=== PATIENT | female | born 1945 | race Caucasian/White ===

== ENCOUNTER 2021-04-21 14:28 | Outpatient (CLI) | payer MEDICARE, OTHER, SELFPAY ==
[2021-04-21 14:52] VITALS: BP 152/56; PULSE 66; RESP 16; TEMP 36.7; O2SAT 98; BMI 33.8
[2021-04-21] MEDS: 0.9% Saline Lock 10 ML Syringe IV (14:58)
[2021-04-21 15:30] VITALS: BP 154/50; PULSE 59; RESP 16; TEMP 37.3; O2SAT 145
[2021-04-21 16:26] VITALS: BP 165/53; PULSE 62; RESP 16; TEMP 37.3; O2SAT 98
== END 2021-04-21 16:30 | disposition home or self-care (01) ==
LOC: ICUOUT 14:28 → MS3 14:29
PROVIDERS: PCP Family Medicine; Referring Provider Nurse Practitioner Adult Health; Visit Provider Nurse Practitioner Adult Health
DX: Z23 Encounter for immunization (principal); U07.1 COVID-19
CPT/HCPCS: J7050; M0243; A4216; Q0244

== ENCOUNTER 2022-03-10 23:50 | Emergency (ER) | payer MEDICARE, OTHER, SELFPAY ==
[2022-03-10 23:51] VITALS: BP 208/76; PULSE 72; RESP 18; TEMP 36.8; O2SAT 100; BMI 32.0
[2022-03-11 00:09] LABS: Mucous, Urine 0 SEEN /hpf (<or=2+); Squamous Epithelial Cells - UA 0 SEEN /hpf (5-10)
[2022-03-11 00:11] LABS: Color, Urine Red (Yellow); Glucose, Dipstick Normal (Normal); Ketone-Dipstick 5 mg/dl (Negative); Leukocyte Esterase-Dipstick 500 /ul (Negative); Nitrite-Dipstick Negative (Negative); Occult Blood-Urine 250 /ul (Negative); Protein-Dipstick 500 mg/dl (Negative); Specific Gravity, Urine 1.005 (1.002-1.030); Urine Bilirubin Dipstick Negative (Negative); Urine Clarity Sl. Cloudy (Clear); Urine Urobilinogen Normal (Normal)
[2022-03-11 00:28] LABS: Bacteria 3+ /hpf (None Seen); Red Blood Cells-Urine > 100 SEEN /hpf (0-5); White Blood Cells 5-10 SEEN /hpf (0-5)
[2022-03-11 00:33] VITALS: BP 167/65; PULSE 72; RESP 18; O2SAT 100
--- NOTE | 2022-03-11 00:34 | EDS_ITS ---
HPI HPI - Female History of Present Illness Chief Complaint: Complaint Informant: patient and spouse/S.O. Narrative Narrative: 76-year-old female states that prior to arrival she went to the bathroom to urinate. She noticed that the urine was red. She notes burning with urination. She denies any nausea vomiting fever or flank pain. No history of kidney stones. She is not on blood thinners. She states its been years since she had a urinary tract infection. She felt fine earlier in the day. PFSH PFSH Home Medications Quinapril Hcl [Accupril] 40 mg PO DAILY 04/03/14 [History Last Taken 08/19/15 08:00] amlodipine 10 mg tablet 10 mg PO DAILY 04/03/14 [History Last Taken 08/19/15 08:00] hydrochlorothiazide 12.5 mg capsule 25 mg PO DAILY 04/03/14 [History Last Taken Unknown] levothyroxine 125 mcg tablet 125 mcg PO DAILY 04/03/14 [History Last Taken 08/19/15 07:30] metformin 500 mg tablet 500 mg PO BIDCM 04/03/14 [History Last Taken Unknown] rosuvastatin 10 mg tablet 10 mg PO DAILY 01/24/17 [History Last Taken Unknown] phenazopyridine 200 mg tablet (Pyridium) 200 mg PO TID #9 tabs 03/11/22 [Rx Last Taken Unknown] sulfamethoxazole 800 mg-trimethoprim 160 mg tablet 1 tab PO BID #10 TABLETS 03/11/22 [Rx Last Taken Unknown] Allergy/AdvReac Type Severity Reaction Status Date / Time No Known Allergies Allergy Verified 03/10/22 23:54 Social History (Updated 03/11/22 @ 00:[address] Karson Erickson, ) Smoking Status: Never smoker substance use type: does not use ROS ROS ED Constitutional Constitutional ED: Denies chills or weight loss Eyes Eyes: Denies change in vision or diplopia ENT ENT ED: Denies ear pain, rhinorrhea or sore throat Cardiovascular Cardiovascular: Denies chest pain, orthopnea, palpitations or racing heartbeat Respiratory/Chest Respiratory/Chest: Denies cough, dyspnea or orthopnea Gastrointestinal Gastrointestinal: Denies abdominal pain, diarrhea, nausea or vomiting Genitourinary Genitourinary ED: Reports dysuria, hematuria and urinary frequency Musculoskeletal Musculoskeletal: Denies arthralgias or myalgias Integumentary Denies abscess or rash Neurologic Neurologic: Denies headache(s) or weakness Psychiatric Psychiatric: Denies anxiety, depression, suicidal ideation or suicidal thoughts Endocrine Endocrinology: Denies polydipsia, polyphagia or polyuria Allergic/Immunologic Allergic/Immunologic ED: Denies mouth swelling, tongue swelling or urticaria EXAM Physical Exam Const Vital Signs: 03/10/22 23:51 Temperature 98.2 F Temperature Source Temporal Pulse Rate 72 Respiratory Rate 18 Blood Pressure 208/76 H Blood Pressure Mean 120 Pulse Ox 100 Oxygen Delivery Method Room Air Positive well nourished and well developed General Appearance ED: well developed HEENT Reports normocephalic, head/scalp atraumatic and moist mucous membranes Eyes PERRL and EOMs intact bilaterally Neck no lymphadenopathy, supple and no JVD Resp normal respiratory effort and clear to auscultation bilaterally Cardio regular rate, regular rhythm and no murmurs GI normal to inspection, nondistended, normoactive bowel sounds and non-tender Palpation: soft Back/Spine no CVA tenderness and normal ROM Extremity normal to inspection General Extremety ED: Negative for edema General Extremity: Negative for edema Neuro oriented x3 and CN's II-XII intact bilaterally Sensorium / Orientation: alert Motor Exam: strength 5/5 throughout Psych mental status grossly normal Mood & Affect: Negative for depressed or tearful Skin no rashes or lesions noted and no wounds MDM MDM MDM Narrative Medical decision making narrative: Urinalysis demonstrates greater than 100 red blood cells 3+ bacteria 5-10 white cells positive leukocyte esterace negative nitrates. Patient received a dose of Bactrim and Pyridium. Culture was sent. Patient to be discharged home on medications. Lab Data Attestation: I reviewed the patient's lab results. Labs: Laboratory Results - last 24 hr 03/11/22 00:00 Urine Color Red Urine Clarity Sl. Cloudy Urine pH 7.0 Ur Specific [place] 1.005 Urine Protein 500 H Urine Glucose (UA) Normal Urine Ketones 5 H Urine Occult Blood 250 H Urine Nitrite Negative Urine Bilirubin Negative Urine Urobilinogen Normal Ur Leukocyte Esterase 500 H Urine RBC > 100 SEEN Urine WBC 5-10 SEEN Ur Squamous Epith Cells 0 SEEN Urine Bacteria 3+ Urine Mucus 0 SEEN Discharge Plan Triage Chief Complaint: Complaint ED Provider: Karson Erickson Dx/Rx/DC Orders Clinical Impression: Acute hemorrhagic cystitis, Dysuria Instructions: ED Cystitis Female Adult Prescriptions: New phenazopyridine [Pyridium] 200 mg tablet 200 mg PO TID Qty: 9 0RF sulfamethoxazole-trimethoprim [sulfamethoxazole-trimethoprim] 800-160 mg tablet 1 tab PO BID Qty: 10 0RF No Action metformin 500 MG tablet 500 mg PO BIDCM Label Comments: controls blood sugar amlodipine 10 MG tablet 10 mg PO DAILY Label Comments: blood pressure levothyroxine 125 MCG tablet 125 mcg PO DAILY Label Comments: thyroid hydrochlorothiazide 12.5 MG capsule 25 mg PO DAILY Label Comments: blood pressure Quinapril Hcl [Accupril] 40 MG tablet 40 mg PO DAILY Label Comments: blood pressure rosuvastatin 10 MG tablet 10 mg PO DAILY Primary Care Provider: Mark Torres Referrals: Mark Torres MD [Primary Care Provider] - 3-5 Days if not improving Disposition Disposition: Home, Self Care
[2022-03-11] MEDS: Smz/Tmp Ds Tablet 1 TABLET PO (00:42)
[2022-03-11] MEDS: Phenazopyridine 95 MG Tablet 190 MG PO (00:42)
== END 2022-03-11 00:47 | disposition home or self-care (01) ==
PROVIDERS: Emergency Provider Emergency Medicine; PCP Family Medicine; Visit Provider Emergency Medicine
DX: N30.01 Acute cystitis with hematuria (principal); R30.0 Dysuria
CPT/HCPCS: 81001; 87086; 87088; 87186; 99284

== ENCOUNTER 2022-12-16 13:55 | Emergency (ER) | payer MEDICARE, OTHER, SELFPAY ==
[2022-12-16 13:56] VITALS: BP 130/60; PULSE 60; RESP 16; TEMP 36.6; O2SAT 98; BMI 35.3
--- NOTE | 2022-12-16 14:55 | ED.VIS.LOWEX ---
HPI History of Present Illness HPI Narrative: Patient presents with laceration to her left lower leg that occurred today. Patient states she was putting mulch into a gwendolyn wheelbarrow and it accidentally hit her on her left lower leg. Patient is unsure of her last tetanus. Patient describes her pain as throbbing. Patient states nothing makes it better nothing makes it worse. Patient denies any paresthesias or weakness. Patient states the bleeding stopped after several minutes of pressure. Chief Complaint: Laceration Informant: patient Occured/Mechanism Mechanism/Context: Yes direct blow Onset/Context/Timing Onset: Today Context: Sudden Onset Timing: Continuous Quality of Pain: Throbbing Location: Left lower leg Worsened by: Nothing Relieved by: Nothing Associated Symptoms Associated Symptoms: Negative for Parasthesia, Weakness or Loss of Funtion Narrative Tetanus Immunization: Unknown [facility] Medical History (Updated 12/16/22 @ 15:[address] Sam Georges, DO) Diabetes Hypercholesterolemia Hypertension Medical History no medical history Home Medications Quinapril Hcl [Accupril] 40 mg PO DAILY 04/03/14 [History Last Taken 08/19/15 08:00] amlodipine 10 mg tablet 10 mg PO DAILY 04/03/14 [History Last Taken 08/19/15 08:00] hydrochlorothiazide 12.5 mg capsule 25 mg PO DAILY 04/03/14 [History Last Taken Unknown] levothyroxine 125 mcg tablet 125 mcg PO DAILY 04/03/14 [History Last Taken 08/19/15 07:30] metformin 500 mg tablet 500 mg PO BIDCM 04/03/14 [History Last Taken Unknown] rosuvastatin 10 mg tablet 10 mg PO DAILY 01/24/17 [History Last Taken Unknown] phenazopyridine 200 mg tablet (Pyridium) 200 mg PO TID #9 tabs 03/11/22 [Rx Last Taken Unknown] sulfamethoxazole 800 mg-trimethoprim 160 mg tablet 1 tab PO BID #10 TABLETS 03/11/22 [Rx Last Taken Unknown] cephalexin 500 mg capsule 500 mg PO Q6 #40 CAPSULES 12/16/22 [Rx Last Taken Unknown] Allergy/AdvReac Type Severity Reaction Status Date / Time No Known Allergies Allergy Verified 12/16/22 13:57 Surgical History (Updated 12/16/22 @ 15:[address] 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 Social History Smoking Status: Never smoker substance use type: does not use ROS ROS ED Constitutional Constitutional ED: Denies chills or fever(s) Eyes Eyes: Denies blurry vision or change in vision ENT ENT ED: Reports rhinorrhea; Denies sore throat Cardiovascular Cardiovascular: Reports chest pain; Denies palpitations Respiratory/Chest Respiratory/Chest: Reports cough and dyspnea Gastrointestinal Gastrointestinal: Denies nausea or vomiting Genitourinary Genitourinary ED: Denies dysuria or hematuria Musculoskeletal Musculoskeletal: Denies back pain or neck pain Integumentary Denies abscess or rash Neurologic Neurologic: Reports headache(s); Denies weakness Allergic/Immunologic Allergic/Immunologic ED: Denies mouth swelling or urticaria EXAM Physical Exam Const Vital Signs: 12/16/22 13:56 Temperature 97.8 F Temperature Source Temporal Pulse Rate 60 Respiratory Rate 16 Blood Pressure 130/60 H Blood Pressure Mean 83 Pulse Ox 98 Oxygen Delivery Method Room Air Positive well nourished and well developed General Appearance ED: well developed and NAD HEENT Reports moist mucous membranes Neck full ROM and supple Extremity full ROM Neuro oriented x3, CN's II-XII intact bilaterally, moves all extremities and no sensory deficits noted Sensorium / Orientation: alert Motor Exam: strength 5/5 throughout Psych mental status grossly normal Skin Skin Narrative: There is a superficial skin tear over the anteromedial aspect of the left lower leg near the ankle. There is mild gapping of the wound margins. There is no active bleeding noted. There are no foreign bodies noted. Pedal pulses are equal bilaterally. Sensation was intact to light touch in all digits. Strength is 5/5 bilaterally in the lower extremities. There are no sensory deficits noted. There is no erythema or warmth. MDM MDM MDM Narrative Medical decision making narrative: The laceration is a superficial skin tear. I feel it is amenable to closure with Steri-Strips. Patient was given a tetanus booster here. Patient was given a dose of Keflex and a prescription for Keflex since she is diabetic and it was cut on a gwendolyn wheelbarrow. Patient understands and is agreeable with the plan. Patient was instructed to follow-up with her primary care physician in 5 to 7 days. All questions were answered. Discharge Plan Triage Chief Complaint: Laceration ED Provider: Sam Georges Dx/Rx/DC Orders Clinical Impression: Laceration of left leg, Diabetes Instructions: ED Laceration: All Closures Prescriptions: New cephalexin [cephalexin] 500 mg capsule 500 mg PO Q6 Qty: 40 0RF No Action metformin 500 MG tablet 500 mg PO BIDCM Label Comments: controls blood sugar amlodipine 10 MG tablet 10 mg PO DAILY Label Comments: blood pressure levothyroxine 125 MCG tablet 125 mcg PO DAILY Label Comments: thyroid hydrochlorothiazide 12.5 MG capsule 25 mg PO DAILY Label Comments: blood pressure Quinapril Hcl [Accupril] 40 MG tablet 40 mg PO DAILY Label Comments: blood pressure rosuvastatin 10 MG tablet 10 mg PO DAILY phenazopyridine [Pyridium] 200 mg tablet 200 mg PO TID Qty: 9 0RF sulfamethoxazole-trimethoprim [sulfamethoxazole-trimethoprim] 800-160 mg tablet 1 tab PO BID Qty: 10 0RF Primary Care Provider: Mark Torres Referrals: Mark Torres MD [Primary Care Provider] - 5-7 Days Disposition Disposition: Home, Self Care
[2022-12-16] MEDS: Diphth,Pertuss(Acell),Tet Vac 0.5 ML Vial IM (15:21)
[2022-12-16] MEDS: Cephalexin 500 MG Capsule PO (15:22)
== END 2022-12-16 15:26 | disposition home or self-care (01) ==
PROVIDERS: Emergency Provider Emergency Medicine; PCP Family Medicine; Visit Provider Emergency Medicine
DX: S81.812A Laceration without foreign body, left lower leg, initial encounter (principal); E11.9 Type 2 diabetes mellitus without complications; E78.00 Pure hypercholesterolemia, unspecified; I10 Essential (primary) hypertension; R07.9 Chest pain, unspecified; W26.8XXA Contact with other sharp object(s), not elsewhere classified, initial encounter; Z23 Encounter for immunization
CPT/HCPCS: 90471; 90715; 99283

== ENCOUNTER 2022-12-23 09:07 | Emergency (ER) | payer MEDICARE, OTHER, SELFPAY ==
[2022-12-23 09:08] VITALS: BP 198/55; PULSE 66; RESP 16; TEMP 36.8; O2SAT 99; BMI 34.7
--- NOTE | 2022-12-23 09:16 | EDS_ITS ---
HPI History of Present Illness Chief Complaint: Wound Check [facility] Medical History (Updated 12/23/22 @ 09:[address] Fili Mcgarry DO) Diabetes Hypercholesterolemia Hypertension Home Medications Quinapril Hcl [Accupril] 40 mg PO DAILY 04/03/14 [History Last Taken 08/19/15 08:00] amlodipine 10 mg tablet 10 mg PO DAILY 04/03/14 [History Last Taken 08/19/15 08:00] hydrochlorothiazide 12.5 mg capsule 25 mg PO DAILY 04/03/14 [History Last Taken Unknown] levothyroxine 125 mcg tablet 125 mcg PO DAILY 04/03/14 [History Last Taken 08/19/15 07:30] metformin 500 mg tablet 500 mg PO BIDCM 04/03/14 [History Last Taken Unknown] rosuvastatin 10 mg tablet 10 mg PO DAILY 01/24/17 [History Last Taken Unknown] phenazopyridine 200 mg tablet (Pyridium) 200 mg PO TID #9 tabs 03/11/22 [Rx Last Taken Unknown] sulfamethoxazole 800 mg-trimethoprim 160 mg tablet 1 tab PO BID #10 TABLETS 03/11/22 [Rx Last Taken Unknown] cephalexin 500 mg capsule 500 mg PO Q6 #40 CAPSULES 12/16/22 [Rx Last Taken Unknown] doxycycline hyclate 100 mg capsule 100 mg PO DAILY #14 caps 12/23/22 [Rx Last Taken Unknown] Allergy/AdvReac Type Severity Reaction Status Date / Time No Known Allergies Allergy Verified 12/23/22 09:10 Surgical History (Updated 12/16/22 @ 15:[address] 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 She states she started this 2 days ago. She has 5 additional days. She denies any crepitus or bullae. Denies any increasing pain she does note yellow discharge. Denies any fever, chills, vomiting. Does note some mild stomach upset after taking antibiotics. REVIEW OF SYSTEMS: Pertinent positives: Wound, redness Pertinent negatives: Fever, nausea vomiting, chills, hyperglycemia PHYSICAL EXAM: Nursing triage notes reviewed, Vital signs reviewed Constitutional: please see mdm Extremities: No edema, compartments are soft Neuro: Intact sensation L1-S1 dermatomal distributions. Intact 5/5 strength in hip flexion (T12-L3). Knee extension (L2-L4). Ankle dorsiflexion (L4-L5). Ankle plantar flexion (S1). Great toe extension (L5). 2+ patellar and Achilles DTRs. Skin: MEDICAL DECISION MAKING: Chief Complaint: Left leg wound External records reviewed: Seen on 12/16 for left lower leg laceration. She was initially prescribed Keflex. Factors affecting care: History of diabetes, hyperlipidemia, hypertension Social determinants of health: Elderly History obtained from others: The patient's Consults: ALL IMAGES HAVE BEEN PERSONALLY REVIEWED AND INTERPRETED BY MYSELF. [facility] Narrative: The patient was initially hypertensive otherwise hemodynamically stable, afebrile and nontoxic-appearing. Exam without evidence of compartment syndrome, necrotizing fasciitis I considered the following differential diagnosis: Cellulitis, abscess, necrotizing fasciitis Patient's exam is consistent with cellulitis. She is on day 2 of 7 of antimicrobial therapy. I gave a dose of IV vancomycin here for broad gram- positive coverage. I changed clindamycin to doxycycline based on our 2022 [facility] antibiogram that shows improved coverage for staph, MRSA, MSSA and group B strep compared to clindamycin. Total critical care time today provided was at least 0 minutes. This excludes separately billable procedures. There was a high probability of clinically significant/life threatening deterioration in the patient's condition which required my urgent intervention. Shared decision making: I will have a discussion with the patient and or visitors regarding risk/benefits of further testing or admission. They will be made aware of of the risk/benefits inherent in this decision they will be given the opportunity to voice understanding. Discharge Plan Triage Chief Complaint: Wound Check ED Provider: Fili Mcgarry Dx/Rx/DC Orders Clinical Impression: Cellulitis Instructions: Cellulitis Dc Prescriptions: New doxycycline hyclate 100 mg capsule 100 mg PO DAILY Qty: 14 0RF No Action metformin 500 MG tablet 500 mg PO BIDCM Label Comments: controls blood sugar amlodipine 10 MG tablet 10 mg PO DAILY Label Comments: blood pressure levothyroxine 125 MCG tablet 125 mcg PO DAILY Label Comments: thyroid hydrochlorothiazide 12.5 MG capsule 25 mg PO DAILY Label Comments: blood pressure Quinapril Hcl [Accupril] 40 MG tablet 40 mg PO DAILY Label Comments: blood pressure rosuvastatin 10 MG tablet 10 mg PO DAILY phenazopyridine [Pyridium] 200 mg tablet 200 mg PO TID Qty: 9 0RF sulfamethoxazole-trimethoprim [sulfamethoxazole-trimethoprim] 800-160 mg tablet 1 tab PO BID Qty: 10 0RF cephalexin [cephalexin] 500 mg capsule 500 mg PO Q6 Qty: 40 0RF Primary Care Provider: Mark Torres Referrals: Mark Torres MD [Primary Care Provider] - Activity Restrictions/Additional Instructions: Thank you for trusting us with your care today! Please take Tylenol (2 pills, 650 mg), ibuprofen (2 pills, 400 mg) every 6 hours as needed for pain and fever control. Please STOP taking Keflex, clindamycin. Please begin taking doxycycline. This is based on our local antibiotic resistance patterns. Please return to the emergency department if your symptoms change or worsen. Specifically if cannot tolerate antibiotics by mouth. If you develop worsening infection. Worsening redness. Blisters or dark discoloration of the skin. Please follow with your primary care physician for further outpatient evaluation and management. Disposition Disposition: Home, Self Care
[2022-12-23 12:04] VITALS: BP 181/99; PULSE 98; RESP 14; O2SAT 98
== END 2022-12-23 12:05 | disposition home or self-care (01) ==
PROVIDERS: Emergency Provider Emergency Medicine; PCP Family Medicine; Visit Provider Emergency Medicine
DX: L03.90 Cellulitis, unspecified (principal); E11.9 Type 2 diabetes mellitus without complications; E78.00 Pure hypercholesterolemia, unspecified; I10 Essential (primary) hypertension; Z48.00 Encounter for change or removal of nonsurgical wound dressing
CPT/HCPCS: 96365; 96366; 99283; J7050; A4216

== ENCOUNTER 2023-02-09 09:56 | Emergency (ER) | payer MEDICARE, OTHER, SELFPAY ==
[2023-02-09 09:57] VITALS: BP 173/58; PULSE 57; RESP 18; TEMP 36.6; O2SAT 100; BMI 35.3
--- NOTE | 2023-02-09 10:14 | RAD_ITS ---
INDICATION: sob EXAMINATION/TECHNIQUE: X-RAY - XR Chest 2 Views COMPARISON: FINDINGS: LINES/DEVICES: None. LUNGS: No consolidation, edema or effusion. No pneumothorax. MEDIASTINUM AND CARDIOVASCULAR STRUCTURES: Cardiac silhouette not enlarged. Central airways and mediastinal contour are unremarkable. BONES AND SOFT TISSUES: Unremarkable. RAD/Chest PA and Lateral IMPRESSION: No radiographic evidence of acute cardiopulmonary disease. Electronically Signed: Karson Hussein, at 11:00 EDT ,
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
[2023-02-09 10:23] VITALS: O2SAT 100
[2023-02-09] MEDS: Ipratropium/Albuterol Sulfate 3 ML AMPUL.NEB INHALATION (10:27)
[2023-02-09 10:29] VITALS: PULSE 58; RESP 18; O2SAT 99
== END 2023-02-09 11:52 | disposition home or self-care (01) ==
PROVIDERS: Emergency Provider Emergency Medicine; PCP Family Medicine; Visit Provider Emergency Medicine
DX: J45.901 Unspecified asthma with (acute) exacerbation (principal); E11.9 Type 2 diabetes mellitus without complications; E78.00 Pure hypercholesterolemia, unspecified; I10 Essential (primary) hypertension
CPT/HCPCS: 71046; 93005; 94640; 99282; A4216

== ENCOUNTER 2024-01-19 08:08 | Observation (INO) | payer MEDICARE, OTHER, SELFPAY ==
[2024-01-19] VITALS (11 sets, daily range): BP systolic 153–213; BP diastolic 50–139; PULSE 53–66; RESP 15–18; TEMP 36.1–36.7; O2SAT 97–99; BMI 35.4; BMI 35.0
--- NOTE | 2024-01-19 08:27 | ED.VIS.CHEST ---
HPI History of Present Illness Chief Complaint: Palpitations Informant: patient Onset/Context/Timing Onset: Today and Hours (1) Activity at onset: sudden and rest Timing: Continuous Quality: Positive for Heaviness Location: Substernal, Right Parasternal, Left Parasternal, Right Chest and Left Chest Worsened By: Nothing Relieved By: NTG Associated Symptoms: Positive for Dyspnea and Palpitations; Negative for Nausea, Vomiting, Diaphoresis, Cough, Fever, Lightheadedness or Acid Reflux Narrative Narrative: Patient presents with chest pain and palpitations that began approximately 1 hour prior to arrival. Patient states it has been intermittent. Patient describes her pain as a heaviness. Patient states it felt like her heart was racing. Patient states it is diffuse across her entire chest. Patient was given nitroglycerin by EMS. Patient states this did help with her pain. Patient states nothing makes it worse. Patient admits to some mild shortness of breath with her pain. Patient denies any nausea or vomiting. Patient denies any diaphoresis. Patient denies any lightheadedness or dizziness. CVD Risk Factors: Positive for Hypertension, Diabetes and Hypercholesterolemia; Negative for Family History 1' </=55 or Smoking PE Risk Factors: Negative for Recent Travel/Surgery, Recent Immobilization, Prior DVT or PE, Cancer or OCP + Smoking + >/=35 PFSH PFS Medical History Hypercholesterolemia Hypertension Diabetes Home Medications ?Medication ?Instructions ?Recorded ?Last Taken ?Type amlodipine 10 mg tablet 10 mg PO DAILY 04/03/14 08/19/15 08:00 History levothyroxine 125 mcg tablet 125 mcg PO DAILY 04/03/14 08/19/15 07:30 History metformin 500 mg tablet 500 mg PO BIDCM 04/03/14 Unknown History albuterol sulfate 90 mcg/actuation 2 puff inhalation Q4H PRN WHEEZING 01/19/24 01/18/24 History aerosol inhaler (Ventolin HFA) coffee extract 100 mg-phosphatidyl 2 cap PO DAILY MIND/MEMORY 01/19/24 01/18/24 History serine 100 mg capsule (Neuriva SUPPLEMENT Original) hydrochlorothiazide 25 mg tablet 25 mg PO DAILY BLOOD PRESSURE 01/19/24 01/18/24 History lisinopril 20 mg tablet 20 mg PO DAILY BLOOD PRESSURE 01/19/24 01/18/24 History pravastatin 10 mg tablet 10 mg PO QHS CHOLESEROL 01/19/24 01/18/24 History Allergy/AdvReac Type Severity Reaction Status Date / Time No Known Allergies Allergy Verified 01/19/24 08:08 Surgical History 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 Social History Smoking Status: Never smoker substance use type: does not use ROS ROS ED Constitutional Constitutional ED: Denies chills or fever(s) Eyes Eyes: Denies blurry vision or change in vision ENT ENT ED: Denies rhinorrhea or sore throat Cardiovascular Cardiovascular: Reports chest pain, palpitations and racing heartbeat Respiratory/Chest Respiratory/Chest: Reports dyspnea; Denies cough Gastrointestinal Gastrointestinal: Denies abdominal pain, nausea or vomiting Genitourinary Genitourinary ED: Denies dysuria or hematuria Musculoskeletal Musculoskeletal: Denies back pain or neck pain Integumentary Denies abscess or rash Neurologic Neurologic: Denies headache(s) or weakness Allergic/Immunologic Allergic/Immunologic ED: Denies mouth swelling or urticaria EXAM Physical Exam Const Vital Signs: 01/19/24 08:09 01/19/24 08:09 01/19/24 08:38 Temperature 96.9 F L Temperature Source Temporal Pulse Rate 66 Respiratory Rate 17 Respiratory Effort Normal Non-Labored Blood Pressure 211/61 H Blood Pressure Mean 111 Pulse Ox 98 Oxygen Delivery Method Room Air Room Air 01/19/24 08:54 Temperature Temperature Source Pulse Rate 53 L Respiratory Rate Respiratory Effort Blood Pressure 169/139 H Blood Pressure Mean Pulse Ox Oxygen Delivery Method Positive well nourished and well developed General Appearance ED: well developed and NAD HEENT Reports moist mucous membranes Neck supple and no JVD Chest Wall inspection of chest normal and palpation of chest normal Resp normal respiratory effort and clear to auscultation bilaterally Cardio regular rate and regular rhythm GI soft to palpation, non-tender and non-distended Neuro oriented x3, CN's II-XII intact bilaterally and no sensory deficits noted Sensorium / Orientation: awake and alert Motor Exam: strength 5/5 throughout Psych mental status grossly normal Heart Score History: Moderately Suspicious ECG: Nonspecific Repolarization Age: >/= 65 years Risk Factors: >/= 3 Risk Factors or History of CAD Troponin: </= Normal Limit Score: 6 MDM MDM MDM Narrative Medical decision making narrative: Differential diagnosis includes cardiac dysrhythmia, cardiac ischemia, hypertensive urgency, hypertensive emergency, pneumonia, pneumothorax, electrolyte abnormality, congestive heart failure, GERD, musculoskeletal pain, and anxiety. EKG will be obtained to assess for cardiac dysrhythmia and cardiac ischemia. Chest x-ray will be obtained to assess for pneumonia, pneumothorax, and congestive heart failure. CBC will be obtained to assess for leukocytosis and anemia. Basic metabolic profile will be obtained to assess for electrolyte abnormality and renal function. High-sensitivity troponin will be obtained to assess for cardiac ischemia. 2-hour repeat high-sensitivity troponin will be obtained to assess for ongoing cardiac ischemia. Lab Data Attestation: I reviewed the patient's lab results. Lab results narrative: CBC was reviewed and was essentially within normal limits. Basic metabolic profile was reviewed. Potassium was slightly low at 3.4. Glucose was slightly elevated at 122. The remainder is within normal limits. High-sensitivity troponin was reviewed and was normal at 4. Labs: Laboratory Results - last 24 hr 01/19/24 07:50 WBC 7.9 RBC 4.78 Hgb 14.5 Hct 43.0 MCV 90.0 MCH 30.3 MCHC 33.7 RDW Std Deviation 41.7 RDW Coeff of Silvia 12.8 Plt Count 365 MPV 10.5 Immature Gran % (Auto) 0.300 Neut % (Auto) 46.3 L Lymph % (Auto) 40.5 Duchesne % (Auto) 8.6 Eos % (Auto) 2.8 Baso % (Auto) 1.5 H Absolute Neuts (auto) 3.7 Absolute Lymphs (auto) 3.19 Nucleated RBC % 0 Sodium 138 Potassium 3.4 L Chloride 102 Carbon Dioxide 32.0 Anion Gap 4 L BUN 13 Creatinine 0.97 Estim Creat Clear Calc 49.21 Est GFR (MDRD) Af Amer 72 Est GFR (MDRD) Non-Af 59 L BUN/Creatinine Ratio 13.4 Glucose 122 H Calcium 9.8 Troponin I High Sens 4 Radiography Chest X-Ray - ED: 1 View, Read by ED Physician, Read by Radiologist and No Acute Disease Diagnostic Testing: Clinical Impression(s) from Imaging Studies Chest X-Ray 01/19/24 08:38 IMPRESSION: No acute abnormality is seen. Electronically Signed: Andre Conde MD at 9:30 EDT , EKG Initial EKG: Attestation: I personally reviewed and interpreted this EKG as follows: Interpretation: Sinus Bradycardia (58) and Non-Specific ST Changes Comments: EKG was obtained. On my independent interpretation, it showed a sinus bradycardia with a rate of 58. [place] interval, QRS interval, and QTc intervals were all normal. Strunk was normal. There are nonspecific ST-T wave changes. Prior EKG tracings: available for review Prior: Unchanged (02/09/2023) Management Discussion w/another healthcare provider: Hospitalist Treatment and Re-Evaluation :: Patient was given aspirin and nitroglycerin by EMS. Patient was given nitroglycerin paste here. Patient was given a dose of oral potassium. Patient was feeling better on reevaluation. Patient's blood pressure improved to 169/139. Patient has a HEART score of 6. Patient states she has not had a stress test for the past 4 years or so. Because of this, I recommended admission to the hospital for further chest pain evaluation. Patient is agreeable with this. Case was discussed with the hospitalist. He will admit the patient to PCU for observation. Patient and family understood and were agreeable with the plan. All questions were answered. Discharge Plan Dx/Rx/DC Orders Clinical Impression: Chest pain, Diabetes, Hypertension Disposition Disposition: Acute Care Hospital [facility]
--- NOTE | 2024-01-19 08:38 | EKG12_ITS ---
Test Reason : PALPATATIONS Blood Pressure : / mmHG Vent. Rate : 058 BPM Atrial Rate : 058 BPM P-R Int : 148 ms QRS Dur : 082 ms QT Int : 426 ms P-R-T Axes : 020 -03 092 degrees QTc Int : 418 ms Sinus bradycardia Abnormal QRS-T angle, consider primary T wave abnormality Abnormal ECG Confirmed by Guy Alvarez ([id number]), features editor SIGRID RAVI ([id number]) on 01/20/2024 11:17:27 AM Referred By: Confirmed By:Guy Alvarez
--- NOTE | 2024-01-19 08:38 | RAD_ITS ---
STUDY: X-RAY CHEST REASON FOR EXAM: Female, 78 years old. Chest pain TECHNIQUE: Single AP portable view of the chest. COMPARISON: Comparison is made with prior study dated February 09, 2023. FINDINGS: EKG electrodes are seen. The lungs are clear and expanded. There is no demonstrated pleural abnormality. Normal size heart. Normal mediastinum and stevie. Normal visualized pulmonary arteries. Normal visualized aortic arch and descending thoracic aorta. There are diffuse degenerative changes of the visualized thoracic spine. Normal visualized ribs, clavicles, and shoulders. There is no demonstrated abnormality of the visualized soft tissue structures of the upper abdomen. RAD/Chest 1 View (Portable) IMPRESSION: No acute abnormality is seen. Electronically Signed: Andre Conde MD at 9:30 EDT ,
[2024-01-19 08:52] LABS: Absolute Lymphocyte Count 3.19 X10^3/uL (0.83-4.51); Absolute Neutrophil Count 3.7 X10^3/uL (2.0-7.7); Basophil# 0.12 X10^3/uL; Basophil% 1.5 % (0-1); Eosinophil# 0.22 X10^3/uL; Eosinophils% 2.8 % (0-5); Hemoglobin 14.5 g/dL (12.0-15.0); Lymphocyte # 3.19 X10^3/ul (0.83-4.51); Lymphocyte % 40.5 % (19-41); Mean Corp Hgb Conc 33.7 g/dL (32-36); Mean Corpuscular Hgb 30.3 pg (27.0-32.0); Mean Platelet Vol. 10.5 fl (6.2-12.0); Monocyte# 0.68 X10^3/uL; Monocyte% 8.6 % (0-10); NRBC Flagged by Analyzer 0 % (0-5); Neutrophil # 3.65 X10^3/uL (2.7-7.7); Neutrophil % 46.3 % (47-70); Platelet Count 365 K/mm3 (150-450); RBC Distribution Width CV 12.8 % (11.6-14.6); RBC Distribution Width SD 41.7 fl (35.1-43.9); Red Blood Count 4.78 M/mm3 (4.2-5.4); White Blood Count 7.9 K/mm3 (4.4-11.0)
[2024-01-19] MEDS: Nitroglycerin Oint 1 INCH PACKET TD (08:54)
[2024-01-19 09:07] LABS: Anion Gap 4 (5-15); BUN 13 mg/dL (7-18); BUN/Creat Ratio 13.4 RATIO (10-20); Calcium,Total 9.8 mg/dL (8.5-10.1); Chloride 102 mmol/L (98-107); Creatinine, Serum 0.97 mg/dL (0.55-1.02); EST Glomerular Filtration Rate 59 mL/min (>60); Est Glom Filt Rate - Afr Amer 72 mL/min (>60); Estimated Creatinine Clearance 49.21 ml/min; Glucose 122 mg/dL (74-106); Potassium 3.4 mmol/L (3.5-5.1); Sodium Level 138 mmol/L (136-145); Troponin-I HS (w/2H Reflex) 4 pg/mL (3.0-54.0)
--- NOTE | 2024-01-19 09:37 | PCM.HP.STD ---
HPI - General General Date of Admission: 01/19/24 Date of Service: 01/19/24 Chief Complaint: Chest pain HPI Narrative SARAH CARRIZALES, is a 78 F who presented to [facility] ED on 01/19/2024 with chest pain. Saw patient at bedside in the ED, and daughter present. Patient was sitting up fairly comfortably in bed, conversing normally, in no acute distress during our encounter. Patient has history of high blood pressure, high cholesterol, [id number] type 2 diabetes, hypothyroidism and asthma. States she has been taking all home medications as prescribed. Patient states she had an episode of chest pain this morning that woke her up from sleep. She has had episodes of mild chest pain in the past but this was worse than anything she had previously experienced. She described the pain as a chest heaviness and like her heart was racing. Stated the pain was diffuse across her chest. Was given nitroglycerin by EMS and states this did help her pain. States nothing made the pain worse. During our encounter, she reported very mild chest tightness that was much improved from previous. Patient reports chronic shortness of breath with exertion due to her known history of asthma. She uses her albuterol inhaler usually multiple times per week and states her symptoms are sometimes worst in the summer. She had not needed to use her albuterol inhaler over the past few days however. She does have good relief of symptoms when she uses the inhaler. Patient otherwise denies any acute concerns currently. Denies any shortness of breath, abdominal pain, fevers or chills. Vitals in ED were notable for hypertension with BP around 200s/80s, was otherwise hemodynamically stable on room air. Labs notable for potassium 3.4, CBC and BMP otherwise unremarkable. Troponin negative x 2. EKG with normal sinus rhythm, no ST changes. Chest x-ray was unremarkable. [facility] Medical History Hypercholesterolemia Hypertension Diabetes Home Medications ?Medication ?Instructions ?Recorded ?Last Taken ?Type amlodipine 10 mg tablet 10 mg PO DAILY BLOOD PRESSURE 04/03/14 01/18/24 History levothyroxine 125 mcg tablet 125 mcg PO DAILY THYROID 04/03/14 01/18/24 History metformin 500 mg tablet 500 mg PO BIDCM DIABETES 04/03/14 01/18/24 History albuterol sulfate 90 mcg/actuation 2 puff inhalation Q4H PRN WHEEZING 01/19/24 01/18/24 History aerosol inhaler (Ventolin HFA) coffee extract 100 mg-phosphatidyl 2 cap PO DAILY MIND/MEMORY 01/19/24 01/18/24 History serine 100 mg capsule (Neuriva SUPPLEMENT Original) hydrochlorothiazide 25 mg tablet 25 mg PO DAILY BLOOD PRESSURE 01/19/24 01/18/24 History lisinopril 20 mg tablet 20 mg PO DAILY BLOOD PRESSURE 01/19/24 01/18/24 History pravastatin 10 mg tablet 10 mg PO QHS CHOLESEROL 01/19/24 01/18/24 History Allergy/AdvReac Type Severity Reaction Status Date / Time No Known Allergies Allergy Verified 01/19/24 08:08 Surgical History 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 Social History Smoking Status: Never smoker substance use type: does not use ROS Constitutional Constitutional: Denies chills, fatigue, fever(s) or weakness Eyes Eyes: Denies change in vision Cardiovascular Cardiovascular: Reports chest pain and rapid heart rate; Denies edema, lightheadedness, palpitations or syncope Respiratory/Chest Respiratory/Chest: Reports shortness of breath with exertion; Denies cough, shortness of breath at rest or wheezing Gastrointestinal Gastrointestinal: Denies abdominal pain Musculoskeletal Musculoskeletal: Denies back pain Neurologic Neurologic: Denies dizziness, focal weakness or headache(s) Vital Signs Vital Signs Vital Signs: 01/19/24 08:09 01/19/24 08:09 01/19/24 08:38 Temperature 96.9 F L Temperature Source Temporal Pulse Rate 66 Respiratory Rate 17 Respiratory Effort Normal Non-Labored Blood Pressure 211/61 H Blood Pressure Mean 111 Pulse Ox 98 Oxygen Delivery Method Room Air Room Air 01/19/24 08:54 Temperature Temperature Source Pulse Rate 53 L Respiratory Rate Respiratory Effort Blood Pressure 169/139 H Blood Pressure Mean Pulse Ox Oxygen Delivery Method Weight Weight: 87.9 kg Body Mass Index (BMI) 35.4 Physical Exam Const alert, oriented x3 and no apparent distress Constitutional Narrative: Elderly female, obese, mildly anxious appearing, otherwise laying comfortably in bed, conversing normally, no acute distress. General Appearance: cooperative and comfortable HEENT normocephalic, head/scalp atraumatic, hearing grossly normal bilaterally and nasal mucous membranes and turbinates normal Eyes PERRL, EOMs intact bilaterally and conjunctivae normal Neck full ROM Chest inspection of chest normal Resp normal respiratory effort, normal air movement, no use of accessory muscles and clear to auscultation bilaterally Cardio regular rate, regular rhythm, no murmurs and peripheral pulses 2+ throughout GI normal to inspection, nondistended, normoactive bowel sounds, soft to palpation, non-tender and non-distended Back/Spine normal ROM Extremity normal to inspection, full ROM and no pedal edema Skin no rashes or lesions noted Neuro moves all extremities and no focal motor deficits Speech: speech normal Psych mental status grossly normal Mood & Affect: anxious Results Lab / Micro Data 01/19/24 07:50 01/19/24 07:50 Labs: Laboratory Results - last 24 hr 01/19/24 07:50: WBC 7.9, RBC 4.78, Hgb 14.5, Hct 43.0, MCV 90.0, MCH 30.3, MCHC 33.7, RDW Std Deviation 41.7, RDW Coeff of Silvia 12.8, Plt Count 365, MPV 10.5, Immature Gran % (Auto) 0.300, Neut % (Auto) 46.3 L, Lymph % (Auto) 40.5, [place] % (Auto) 8.6, Eos % (Auto) 2.8, Baso % (Auto) 1.5 H, Absolute Neuts (auto) 3.7, Absolute Lymphs (auto) 3.19, Nucleated RBC % 0, Sodium 138, Potassium 3.4 L, Chloride 102, Carbon Dioxide 32.0, Anion Gap 4 L, BUN 13, Creatinine 0.97, Estim Creat Clear Calc 49.21, Est GFR (MDRD) Af Amer 72, Est GFR (MDRD) Non-Af 59 L, BUN/Creatinine Ratio 13.4, Glucose 122 H, Calcium 9.8, Troponin I High Sens 4 Imaging Radiology Impression Chest X-Ray 01/19/24 08:38 IMPRESSION: No acute abnormality is seen. Electronically Signed: Andre Conde MD at 9:30 EDT , Assessment & Plan Assessment/Plan (1) Chest pain: PLAN: Plan Patient is a 78-year-old female who presented [facility] ED on 01/19/2024 with chest pain. 1. Chest pain, ACS rule out ? Admit under observation status to PCU. Unclear etiology but elevated HEART score given her history and presentation. Cardiac workup in ED negative including negative troponins x 2, normal EKG, normal chest x-ray. Echo ordered. Nuclear stress test ordered. Lipid panel, A1c, TSH ordered. Okay to continue home amlodipine, lisinopril and hydrochlorothiazide for now. Continue cardiac monitoring. 2. Hypertension ? Home medications of amlodipine, lisinopril and hydrochlorothiazide. Systolic blood pressure significant elevated up to 200s on admit but patient notably with wide pulse pressure; this remained consistent on BP rechecks on day of admission. Unclear etiology. Continue home medications for now. Follow-up echo ordered above. Chronic medical conditions: ? Obesity: BMI 35 on admit. Encouraged lifestyle modifications. Complicates hospital course, care and prognosis. ? Asthma: Stable on room air, not in acute exacerbation. Continue home albuterol inhaler as needed. ? Hypothyroidism: TSH ordered. Continue home Synthroid. ? Type 2 diabetes mellitus: Home regimen of metformin 500 mg twice daily. A1c ordered. Will treat with sliding scale insulin with meals while inpatient, adjust as needed. ? Hyperlipidemia: Lipid profile ordered. Continue home pravastatin for now. DVT prophylaxis: Lovenox CODE STATUS: Full code, verified Expected disposition: Home, 1 to 2 days Total clinical time spent by myself addressing the patient's medical issues, reviewing all the data, and collaborating with patient's care team: 55 minutes. Charges/Coding Visit Charges Inpatient E&M: 06589 Init Hosp L2
[2024-01-19] MEDS: hydrALAZINE 20 MG/ML Vial 10 MG IV ×3 (10:00→20:42)
[2024-01-19] MEDS: Potassium Chloride Oral Tablet 20 MEQ 40 MEQ PO (10:00)
[2024-01-19 10:19] LABS: Cholesterol 282 mg/dL (200); High Density Lipoprotein 64 mg/dL; Phosphorus 3.2 mg/dL (2.5-4.9); Thyroid Stim Hormone (TSH) 3.68 uIU/mL (0.358-3.74); Triglycerides 199 mg/dL; Very Low Density Lipoprotein 40 mg/dL (5-40)
[2024-01-19 10:48] LABS: Reflex Troponin-HS? (from REC) Y
--- NOTE | 2024-01-19 10:54 | ECHOCS_ITS ---
Reason For Study: CHEST PAIN Procedure This was a 2D Doppler, Color Flow transthoracic echocardiogram. The study was technically difficult. Contrast injection was performed. Exam performed portable in patient room. Left Ventricle Normal size and thickness. The left ventricular ejection fraction is 65 %. Stage 1 diastolic dysfunction. Right Ventricle Normal right ventricle. Atria The left atrium is severely enlarged. The right atrium is mildly enlarged. Mitral Valve Trivial mitral valve insufficiency. Tricuspid Valve Trivial tricuspid valve insufficiency. Normal pulmonary artery pressure. Aortic Valve The aortic valve is not well visualized in the short axis view. There is no aortic stenosis. No aortic valve insufficiency. Pulmonic Valve The pulmonic valve is not well visualized. Great Vessels The aortic root is not well visualized. Pericardium/Pleural Trivial pericardial effusion. Medication Diluted definity 2ml given slow IV push to enhance endocardial definition. MMode/2D Measurements & Calculations LVIDd: 3.9 cm IVSd: 1.1 cm LVOT diam: 1.9 cm LVIDs: 2.6 cm LVPWd: 1.1 cm RVDd: 3.1 cm FS: 32.9 % LVOT area: 2.7 cm2 Ao root diam: 2.7 cm LAV(MOD-bp): 51.5 ml LVAd ap4: 29.3 cm2 LAV(MOD-bp) Indexed: 27.3 ml/m2 LVLd ap4: 7.4 cm LAV(MOD-sp2): 48.8 ml EDV(MOD-sp4): 94.9 ml LAV(MOD-sp4): 50.9 ml EDV(sp4-el): 98.6 ml LVAs ap4: 18.3 cm2 LVLs ap4: 6.5 cm ESV(MOD-sp4): 44.1 ml ESV(sp4-el): 43.6 ml EF(MOD-sp4): 53.5 % EF(sp4-el): 55.7 % LVAd ap2: 31.4 cm2 SV(MOD-sp4): 50.8 ml SV(MOD-sp2): 64.0 ml LVLd ap2: 7.6 cm EDV(MOD-sp2): 106.4 ml EDV(sp2-el): 110.3 ml LVAs ap2: 18.0 cm2 LVLs ap2: 6.3 cm ESV(MOD-sp2): 42.4 ml ESV(sp2-el): 43.8 ml EF(MOD-sp2): 60.1 % SV(sp4-el): 54.9 ml LA dimension(2D): 4.0 cm LA A4 area: 17.7 cm2 RA A4 area: 10.9 cm2 TAPSE: 1.9 cm Time Measurements MV dec time: 0.36 sec Doppler Measurements & Calculations MV E max meño: 68.1 cm/sec Lat Peak E' Meño: 9.1 cm/sec Med Peak E' Emño: 7.1 cm/sec MV A max meño: 99.5 cm/sec E/E' lat: 7.5 E/E' med: 9.7 MV E/A: 0.68 Ao V2 max: 166.3 cm/sec LV V1 max: 133.1 cm/sec MV dec slope: 191.4 cm/sec2 Ao max P.1 mmHg LV V1 max P.1 mmHg Ao V2 mean: 122.6 cm/sec LV V1 mean P.7 mmHg Ao mean P.7 mmHg LV V1 mean: 103.8 cm/sec Ao V2 VTI: 44.1 cm LV V1 VTI: 32.6 cm AV (velocity ratio): 0.74 SHARLA(I,D): 2.0 cm2 SHARLA(V,D): 2.2 cm2 SV(LVOT): 89.0 ml PA V2 max: 137.1 cm/sec PI end-d meño: 126.2 cm/sec PA max PG (full): 0.74 mmHg TR max meño: 192.1 cm/sec TR max P.8 mmHg ECHO/Echo Complete W/ Contrast Interpretation Summary The study was technically difficult. The left ventricular ejection fraction is 65 %. Stage 1 diastolic dysfunction. The left atrium is severely enlarged. The right atrium is mildly enlarged. Trivial pericardial effusion. Ordering Physician: Angel Camacho Performed By: Nina Dawson RDCS
[2024-01-19] MEDS: Lisinopril 20 MG Tablet PO (11:35)
[2024-01-19 11:59] LABS: Troponin-I HS 10 pg/mL (3.0-54.0)
[2024-01-19 12:09] LABS: Hemoglobin A1c 5.8 % (3.8-5.6)
--- NOTE | 2024-01-19 13:23 | STRESSREP ---
Stress Test Report Date: 01/19/2024 Procedure: Pharmacologic stress nuclear imaging study Indications: Chest pain Consent: Per the patient Procedure: The patient underwent pharmacologic (Regadenoson 0.4mg ) evaluation with a peak heart rate of 93 beats per minute (65%predicted maximal heart rate) and a peak blood pressure of 180/70 mmHg. The baseline ECG demonstrated sinus rhythm with nonspecific ST changes. The peak pharmacologic ECG demonstrated no diagnostic ischemic changes. There were no cardiac dysrhythmias pretest, during pharmacologic infusion, or recovery. There was no complaint of chest discomfort during pharmacologic infusion or recovery. The patient was injected with 11.6 millicuries of technetium 99m Cardiolite and subsequently rest SPECT Cardiolite nuclear imaging was obtained in the horizontal long, vertical long, and short axis views. The patient underwent pharmacologic (Regadenoson) evaluation. The patient was injected with 33.4 millicuries of technetium 99m Cardiolite and subsequently stress SPECT Cardiolite nuclear imaging was obtained in the horizontal long, vertical long, and short axis views. A gated Cardiolite study at peak stress was obtained. The examination was stopped secondary to completion of protocol. Rest and stress SPECT Cardiolite nuclear imaging status post realignment, normalization, and attenuation correction demonstrate no fixed or reversible perfusion defects. There is end systolic thickening and brightening. The gated Cardiolite study demonstrates myocardial thickening and inward wall motion. The reported LVEF is 90%. Impression: 1. Pharmacologic (Regadenoson) evaluation 2. Peak pharmacologic ECG with no diagnostic ischemic changes. 3. There were no cardiac dysrhythmias pretest, during pharmacologic infusion, or recovery. 5. Rest and stress SPECT Cardiolite nuclear imaging demonstrate relative uniform tracer uptake and myocardial perfusion appearing within normal limits. 6. The gated Cardiolite study reports an LVEF of 90%. This note was generated with [employer] software. It may contain incorrect words, spelling, and punctuation that were not noted in checking the note before signing.
[2024-01-19] MEDS: Levothyroxine 125 MCG Tablet PO (13:24)
[2024-01-19] MEDS: hydroCHLOROthiazide 12.5mg 12.5 MG PO (13:24)
[2024-01-19] MEDS: amLODIPine 10 MG Tablet PO (13:24)
[2024-01-19 13:43] LABS: Bedside Glucose 135 mg/dL (74-106)
[2024-01-19] MEDS: Enoxaparin 40 MG/0.4 ML Syringe SC (16:15)
[2024-01-19 16:47] LABS: Bedside Glucose 130 mg/dL (74-106)
[2024-01-19] MEDS: Acetaminophen 325 MG Tablet 650 MG PO (20:26)
[2024-01-19] MEDS: Atorvastatin Calcium 40 MG Tablet PO (20:41)
[2024-01-19 22:22] LABS: Bedside Glucose 147 mg/dL (74-106)
[2024-01-20 02:39] VITALS: BP 150/54; PULSE 56; RESP 18; TEMP 36.5; O2SAT 100
[2024-01-20 05:18] LABS: Hematocrit 41.5 % (37-47); Hemoglobin 14.2 g/dL (12.0-15.0); Mean Corp Hgb Conc 34.2 g/dL (32-36); Mean Corpuscular Hgb 30.5 pg (27.0-32.0); Mean Corpuscular Volume 89.1 fL (81-99); Mean Platelet Vol. 9.4 fl (6.2-12.0); Platelet Count 386 K/mm3 (150-450); RBC Distribution Width CV 12.9 % (11.6-14.6); Red Blood Count 4.66 M/mm3 (4.2-5.4); White Blood Count 8.9 K/mm3 (4.4-11.0)
[2024-01-20 05:41] LABS: Anion Gap 8 (5-15); BUN 11 mg/dL (7-18); BUN/Creat Ratio 15.6 RATIO (10-20); Calcium,Total 9.5 mg/dL (8.5-10.1); Chloride 102 mmol/L (98-107); Creatinine, Serum 0.71 mg/dL (0.55-1.02); EST Glomerular Filtration Rate 85 mL/min (>60); Est Glom Filt Rate - Afr Amer 103 mL/min (>60); Estimated Creatinine Clearance 59.31 ml/min; Glucose 136 mg/dL (74-106); Potassium 3.6 mmol/L (3.5-5.1); Sodium Level 137 mmol/L (136-145)
[2024-01-20] MEDS: Levothyroxine 125 MCG Tablet PO (06:16)
[2024-01-20] MEDS: 0.9% Saline Lock 10 ML Syringe IV (06:17)
[2024-01-20 06:36] LABS: Bedside Glucose 149 mg/dL (74-106)
[2024-01-20 07:01] VITALS: O2SAT 93
--- NOTE | 2024-01-20 08:02 | DCINST_ITS ---
Discharge Instructions Diet Discharge Diet: No restrictions Activity Discharge Activity: Return to Normal Activity Weight Bearing Status: Weight bearing as tolerated Dressing / Incision Call your doctor if you observe: Fever of 101 or Higher, Coldness, Increased Pain, Numbness or Tingling, Change in Color, Inability to urinate, Inability to have a bowel movement, Shortness of breath, Dizziness, Fainting spells, Swelling in the ankles, Chest pain, Prolonged hiccupping, Increased palpitations (irregular heartbeat) and Calf discomfort Follow Up Care When: IN 2 WEEKS Test Results: Test results from this visit will be discussed in further detail at your follow- up appointment, if applicable. Discharge Plan Admission Admit Date/Time: 01/19/24 09:37 Primary Reason for Your Visit: Atypical chest pain. Stress test negative. H ypertensive urgency. Attending Provider: Tariq Gipson Primary Care Provider: Mark Torres Consulting Providers: Angel Camacho Discharge Orders/Prescriptions Prescriptions: Continued metformin 500 MG tablet 500 mg PO BIDCM amlodipine 10 MG tablet 10 mg PO DAILY levothyroxine 125 MCG tablet 125 mcg PO DAILY pravastatin 10 mg tablet 10 mg PO QHS Neuriva Original 100-100 mg capsule 2 cap PO DAILY albuterol sulfate [Ventolin HFA] 90 mcg/actuation HFA aerosol inhaler 2 puff inhalation Q4H PRN (Reason: WHEEZING ) hydrochlorothiazide 25 mg tablet 25 mg PO DAILY Changed lisinopril 20 mg tablet 40 mg PO DAILY 30 Days Qty: 60 0RF Referrals / Follow Up: Mark Torres MD [Primary Care Provider] - In 1 Week Disposition Disposition (needs filled in before D/C Order can be placed): Home, Self Care
--- NOTE | 2024-01-20 08:02 | PCM.DC.SUM ---
Providers Date of Admission: 01/19/24 Date of Discharge: 01/20/24 Primary Care Physician: Dr. Mark Torres MD Reason For Visit: CHEST PAIN Diagnosis Discharge Diagnosis (1) Chest pain: Status: Acute Code(s): R07.9 - Chest pain, unspecified Plan The patient is a 78-year-old female who presented [facility] ED on 01/19/2024 with chest pain. 1. Atypical chest pain: Patient was admitted to PCU under observation status. ACS ruled out. Unclear etiology but elevated HEART score given her history and presentation. Cardiac workup in ED negative including negative troponins x 2, normal EKG, normal chest x-ray. 2D echo shows stage I diastolic dysfunction, left atrium severely enlarged right atrium mildly enlarged suggestive of chronic HFpEF. Stress test did not show diagnostic ischemic changes. No cardiac dysrhythmia. Fasting profile shows total cholesterol 282, LDL 178. TSH 3.68. A1c 5.8. ACS ruled out. Patient on pravastatin 10 mg daily at home she is to high intensity rosuvastatin 20 mg daily at bedtime. 2. Hypertension uncontrolled. ? Home medications of amlodipine, lisinopril and hydrochlorothiazide. Systolic blood pressure significant elevated up to 200s on admit but patient notably with wide pulse pressure and was consistent but is better controlled now. Echo shows EF 65%, stage I?dysfunction suggestive of chronic HFpEF. Left atrium severely enlarged. Right atrium mildly enlarged. Aortic valve not well-visualized but no distinct aortic stenosis or AI. Patient blood pressure was very high. It has been high since 2020. Patient on amlodipine 10 mg daily, HCTZ 25 mg daily and lisinopril 20 mg at home. Lisinopril dose increased to 40 mg daily. Chronic medical conditions: ? Obesity: BMI 35 on admit. Encouraged lifestyle modifications. Complicates hospital course, care and prognosis. ? Asthma: Stable on room air, not in acute exacerbation. Continue home albuterol inhaler as needed. ? Hypothyroidism: TSH ordered. Continue home Synthroid. ? Type 2 diabetes mellitus: Home regimen of metformin 500 mg twice daily. A1c 5.8. Will treat with sliding scale insulin with meals while inpatient, adjust as needed. ? Hyperlipidemia: Lipid profile ordered. Continue home pravastatin for now. DVT prophylaxis: Lovenox CODE STATUS: Full code, verified Discharge medication reconciliation done. Discharge follow-up instructions completed. Discharge process discussed with the patient and all questions were answered to patient's satisfaction. Follow with PCP in 1 to 2 weeks Total time spent, exact 35 minutes on discharge meds reconciliation, examination, coordination of care with nurses and ancillary staff, review of imaging and blood test and discussion with the patient on follow-up instructions. Clinical Impression(s) from Imaging Studies Chest X-Ray 01/19/24 08:38 IMPRESSION: No acute abnormality is seen. Echocardiogram 01/19/24 10:54 Interpretation Summary The study was technically difficult. The left ventricular ejection fraction is 65 %. Stage 1 diastolic dysfunction. The left atrium is severely enlarged. The right atrium is mildly enlarged. Trivial pericardial effusion. Ordering Physician: Angel Camacho Performed By: Nina Dawson RDCS Laboratory Results 01/19/24 20:39: POC Glucose 147 H 01/20/24 04:41: WBC 8.9, RBC 4.66, Hgb 14.2, Hct 41.5, MCV 89.1, MCH 30.5, MCHC 34.2, RDW Std Deviation 42.0, RDW Coeff of Silvia 12.9, Plt Count 386, MPV 9.4, Sodium 137, Potassium 3.6, Chloride 102, Carbon Dioxide 27.0, Anion Gap 8, BUN 11, Creatinine 0.71, Estim Creat Clear Calc 59.31, Est GFR (MDRD) Af Amer 103, Est GFR (MDRD) Non-Af 85, BUN/Creatinine Ratio 15.6, Glucose 136 H, Calcium 9.5 01/20/24 06:16: POC Glucose 149 H Medications at Discharge Home Medications amlodipine 10 mg tablet 10 mg PO DAILY BLOOD PRESSURE 04/03/14 levothyroxine 125 mcg tablet 125 mcg PO DAILY THYROID 04/03/14 metformin 500 mg tablet 500 mg PO BIDCM DIABETES 09/09/14 albuterol sulfate 90 mcg/actuation aerosol inhaler (Ventolin HFA) 2 puff inhalation Q4H PRN WHEEZING 01/19/24 coffee extract 100 mg-phosphatidyl serine 100 mg capsule (Neuriva Original) 2 cap PO DAILY MIND/MEMORY SUPPLEMENT 01/19/24 hydrochlorothiazide 25 mg tablet 25 mg PO DAILY BLOOD PRESSURE 01/19/24 lisinopril 20 mg tablet 40 mg (2 x 20 mg) PO DAILY BLOOD PRESSURE 30 days #60 tabs 01/20/24 rosuvastatin 20 mg tablet 20 mg PO QHS #30 tabs 01/20/24 Physical Exam Narrative Seen and examined. Patient chest pain is resolved. No acute shortness of breath. Denies fever or acute burning micturition or new low-grade tract symptoms. Physical exam: General: Alert, Oriented x3, Cooperative HEENT: Atraumatic, PERRLA, EOMI, Normocephalic Oral: No Gingival or Mucosal Lesions/ Ulcerations Neck: Supple, No JVD, Negative Carotid Bruits Chest wall/Lungs: Air entry diminished in bilateral lung bases. No crepitation/rhonchi Cardiovascular: sinus bradycardia, heart rate in 50s, Normal S1, Normal S2, No M/G/R Abdomen: Bowel Sounds Present, Soft, Non Tender, Non-Distended : No dysuria. No renal angle tenderness. No suprapubic tenderness. Extremities: No edema, Capillary Refill Less than 3 Seconds Skin: No rashes, No breakdown Musculoskeletal: No Tenderness to Palpation of Joints or Extremities Neurological: Cranial nerves II-XII grossly intact, DTR 2+/4. No acute focal neurological deficit. Psych/Mental Status: Normal Affect, Appropriate. Weight / BMI Weight Weight: 191 lb 9.6 oz Body Mass Index (BMI) 35.0 ABG / Lab / Microbiology Data 01/20/24 04:41 01/20/24 04:41 Laboratory: Laboratory Results - last 24 hr 01/19/24 07:50: WBC 7.9, RBC 4.78, Hgb 14.5, Hct 43.0, MCV 90.0, MCH 30.3, MCHC 33.7, RDW Std Deviation 41.7, RDW Coeff of Silvia 12.8, Plt Count 365, MPV 10.5, Immature Gran % (Auto) 0.300, Neut % (Auto) 46.3 L, Lymph % (Auto) 40.5, [place] % (Auto) 8.6, Eos % (Auto) 2.8, Baso % (Auto) 1.5 H, Absolute Neuts (auto) 3.7, Absolute Lymphs (auto) 3.19, Nucleated RBC % 0, Sodium 138, Potassium 3.4 L, Chloride 102, Carbon Dioxide 32.0, Anion Gap 4 L, BUN 13, Creatinine 0.97, Estim Creat Clear Calc 49.21, Est GFR (MDRD) Af Amer 72, Est GFR (MDRD) Non-Af 59 L, BUN/Creatinine Ratio 13.4, Glucose 122 H, Hemoglobin A1c 5.8 H, Calcium 9.8, Phosphorus 3.2, Magnesium 2.0, Troponin I High Sens 4, Triglycerides 199, Cholesterol 282 H, LDL Cholesterol 178 H, VLDL Cholesterol 40, HDL Cholesterol 64, TSH 3.68 01/19/24 11:04: Troponin I High Sens 10 01/19/24 13:19: POC Glucose 135 H 01/19/24 16:15: POC Glucose 130 H 01/19/24 20:39: POC Glucose 147 H 01/20/24 04:41: WBC 8.9, RBC 4.66, Hgb 14.2, Hct 41.5, MCV 89.1, MCH 30.5, MCHC 34.2, RDW Std Deviation 42.0, RDW Coeff of Silvia 12.9, Plt Count 386, MPV 9.4, Sodium 137, Potassium 3.6, Chloride 102, Carbon Dioxide 27.0, Anion Gap 8, BUN 11, Creatinine 0.71, Estim Creat Clear Calc 59.31, Est GFR (MDRD) Af Amer 103, Est GFR (MDRD) Non-Af 85, BUN/Creatinine Ratio 15.6, Glucose 136 H, Calcium 9.5 01/20/24 06:16: POC Glucose 149 H Radiography Diagnostic Testing: Radiology Impression Chest X-Ray 01/19/24 08:38 IMPRESSION: No acute abnormality is seen. Electronically Signed: Andre Conde MD at 9:30 EDT , Meaningful Use Info Meaningful Use Meaningful Use Diagnoses (Choose all that apply): None applicable Ischemic Stroke Statin Dosing Therapy Reference: STATIN DOSE THERAPY REFERENCE: * Patients > 75 years receive moderate or high dose statin therapy. * Patients 75 years or YOUNGER should receive HIGH intensity statin dose unless contraindicated. You will be required to document reason for non-treatment if statin daily dose does not meet guidelines. HIGH DOSE STATIN THERAPY DAILY Atorvastatin > than or = to 40 mg Rosuvastatin > than or = to 20 mg Amlodipine + Atorvastatin > than or = to 2.5/40 mg Ezetimibe + Simvastatin 10/80 mg Simvastatin 80mg Discharge Plan Admission Admit Date/Time: 01/19/24 09:37 Primary Reason for Your Visit: Atypical chest pain. Stress test negative. Hypertensive urgency. Attending Provider: Tariq Gipson Primary Care Provider: Mark Torres Consulting Providers: Angel Camacho Discharge Orders/Prescriptions Prescriptions: New rosuvastatin 20 mg tablet 20 mg PO QHS Qty: 30 2RF Continued metformin 500 MG tablet 500 mg PO BIDCM amlodipine 10 MG tablet 10 mg PO DAILY levothyroxine 125 MCG tablet 125 mcg PO DAILY Neuriva Original 100-100 mg capsule 2 cap PO DAILY albuterol sulfate [Ventolin HFA] 90 mcg/actuation HFA aerosol inhaler 2 puff inhalation Q4H PRN (Reason: WHEEZING ) hydrochlorothiazide 25 mg tablet 25 mg PO DAILY Changed lisinopril 20 mg tablet 40 mg PO DAILY 30 Days Qty: 60 0RF Discontinued pravastatin 10 mg tablet 10 mg PO QHS Referrals / Follow Up: Mark Torres MD [Primary Care Provider] - In 1 Week Disposition Disposition (needs filled in before D/C Order can be placed): Home, Self Care Charges/Coding Visit Charges Inpatient E&M: 87461 Disch Hosp >30min
--- NOTE | 2024-01-20 09:11 | CASEMGMT ---
Social Work- Pt has HCPOA and LIving Will in her chart. PT names Josesito, , and Naomi, daughter, as agents. MARK Templeton
[2024-01-20] MEDS: Lisinopril 20 MG Tablet PO (09:14)
[2024-01-20] MEDS: amLODIPine 10 MG Tablet PO (09:14)
[2024-01-20] MEDS: hydroCHLOROthiazide 12.5mg 12.5 MG PO (09:14)
[2024-01-20] MEDS: Enoxaparin 40 MG/0.4 ML Syringe SC (09:16)
[2024-01-20 09:20] VITALS: BP 154/57; PULSE 53; RESP 16; TEMP 36.3; O2SAT 100
--- NOTE | 2024-01-20 10:36 | CASEMGMT ---
Met with patient to complete ANN form. ANN form explained to patient who voiced understanding and signed form. Original form placed in pt?s chart and copy provided to patient. Eileen Penn, Discharge Planning Asst
--- NOTE | 2024-01-20 12:00 | PHA.DC.MR.R ---
Pharmacy [place] Med Reconciliation Pharmacy Service has performed discharge medication reconciliation for this patient. No new medications added at time of discharge review. Medications reviewed are from previously reported home medications. The patient's discharge medication list was reviewed for discrepancies and discrepancies were resolved. Medications at Discharge Home Medications amlodipine 10 mg tablet 10 mg PO DAILY BLOOD PRESSURE 04/03/14 levothyroxine 125 mcg tablet 125 mcg PO DAILY THYROID 04/03/14 metformin 500 mg tablet 500 mg PO BIDCM DIABETES 04/03/14 albuterol sulfate 90 mcg/actuation aerosol inhaler (Ventolin HFA) 2 puff inhalation Q4H PRN WHEEZING 01/19/24 coffee extract 100 mg-phosphatidyl serine 100 mg capsule (Neuriva Original) 2 cap PO DAILY MIND/MEMORY SUPPLEMENT 01/19/24 hydrochlorothiazide 25 mg tablet 25 mg PO DAILY BLOOD PRESSURE 01/19/24 pravastatin 10 mg tablet 10 mg PO QHS CHOLESEROL 01/19/24 lisinopril 20 mg tablet 40 mg (2 x 20 mg) PO DAILY BLOOD PRESSURE 30 days #60 tabs 01/20/24
--- NOTE | 2024-01-20 12:08 | CASEMGMT ---
Patient has order for discharge. RN CM in to discuss needs at discharge, and daughter at bedside. Patient denies needs or help at discharge. Patient and family had no further questions or concerns.
== END 2024-01-20 11:40 | disposition home or self-care (01) ==
LOC: ED 09:51 → PCU 09:53
PROVIDERS: Admitting Provider Hospitalist; Emergency Provider Emergency Medicine; PCP Family Medicine; Visit Provider Internal Medicine
DX: R07.89 Other chest pain (principal); E11.9 Type 2 diabetes mellitus without complications; E66.9 Obesity, unspecified; I10 Essential (primary) hypertension; Z79.84 Long term (current) use of oral hypoglycemic drugs; E78.00 Pure hypercholesterolemia, unspecified; R06.02 Shortness of breath; Z68.35 Body mass index [BMI] 35.0-35.9, adult; R00.2 Palpitations; Z79.899 Other long term (current) drug therapy; E03.9 Hypothyroidism, unspecified; J45.909 Unspecified asthma, uncomplicated; Z79.890 Hormone replacement therapy
CPT/HCPCS: 36415; 71045; 78452; 80048; 80061; 82962; 83036; 83735; 84100; 84443; 84484; 85025; 85027; 93005; 93017; 93306; 96372; 96374; 96376; 99221; 99285; A9500; Q9957; A4216; C8929; G0378; J2785